=== PATIENT | female | born 1980 | race Caucasian/White ===

== ENCOUNTER 2020-12-26 18:52 | Inpatient (IN) ==
[2020-12-27] MEDS ORDERED: Naloxone 0.4 MG/ML INJ IVP PRN (01:04)
[2020-12-27] MEDS ORDERED: 0.9 % Sodium Chloride 1,000 ML IVC SCH (01:15)
[2020-12-27] MEDS: Ondansetron 4 MG/2 ML VIAL IVP PRN ×3 (01:40→20:06)
[2020-12-27 02:07] LABS: Lymphocytes % 5.3 %; Mean Platelet Volume 10.8 fL (9.4-12.4); Red Cell Distribution Width 12.6 % (11.5-14.5); Segmented Neutrophils % 86.6 %
[2020-12-27 02:08] LABS: Basophils # 0.1 K/mcL (0.0-0.2); Basophils % 0.2 %; Hematocrit 36.9 % (35.3-44.9); Hemoglobin 12.3 g/dL (11.5-15.4); Immature Granulocytes % 0.9 % (0-4); Lymphocytes # 1.6 K/mcL (0.6-4.6); Mean Corpuscular HGB Conc 33.3 g/dL (31.6-35.5); Mean Corpuscular Hemoglobin 31.5 pg (28.0-33.3); Mean Corpuscular Volume 94.4 fL (83.0-100.0); Monocytes # 2.1 K/mcL (0.0-1.3); Neutrophils # 25.4 K/mcL (1.6-8.9); Platelet Count 176 K/mcL (140-400); Red Blood Count 3.91 M/mcL (3.82-4.97); White Blood Count 29.3 K/mcL (4.3-11.1)
[2020-12-27 02:15] LABS: INR 1.4; Prothrombin Time 16.5 Seconds (9.4-12.1)
[2020-12-27 02:18] LABS: Activated Partial Thrombo Time 24.2 Seconds (26.0-36.0)
[2020-12-27 02:26] LABS: Alanine Aminotransferase 7 Units/L (7-52); Albumin 3.8 g/dL (3.5-5.7); Albumin/Globulin Ratio 1.3 (1.1-2.2); Alkaline Phosphatase 50 Units/L (34-104); Aspartate Amino Transferase 12 Units/L (13-39); BUN/Creatinine Ratio 12 (6-26); Bilirubin,Total 0.5 mg/dL (0.3-1.0); Blood Urea Nitrogen 9 mg/dL (6-20); Carbon Dioxide 20 mEq/L (23-29); Chloride 104 mEq/L (98-107); Glucose 114 mg/dL (70-105); Magnesium 1.3 mg/dL (1.6-2.6); Osmolality,Calculated 278 (280-300); Phosphorous 1.9 mg/dL (2.7-4.5); Potassium 3.3 mEq/L (3.5-5.1); Sodium 134 mEq/L (136-145); Total Protein 6.8 g/dL (6.4-8.9); eGFR For African Americans > 60 (> 60); eGFR For Non-African Americans > 60 (> 60)
[2020-12-27] MEDS: Acetaminophen 325 MG TABLET PO PRN ×3 (02:56→23:58)
[2020-12-27] MEDS ORDERED: Magnesium Sulfate 1 GM/102 ML PIGGYBACK IVPB ONE (05:26)
[2020-12-27] MEDS ORDERED: Potassium Phosphate 44 MEQ in 0.9 % Sodium Chloride 250 ML IVPB ONE (05:26)
[2020-12-27 07:33] LABS: Protein/Creatinine Ratio,Urine 0.3 mg/mg (0.00-0.20)
[2020-12-27 07:44] LABS: Bilirubin,Urine Negative (Negative); Blood,Urine Trace (Negative); Clarity,Urine Clear (Clear); Color,Urine Colorless (Yellow); Glucose,Urine (UA) Normal (Normal); Ketones,Urine Negative (Negative); Leukocyte Esterase,Urine Negative (Negative); Mucus,Urine Few per lpf (None-Few); Nitrite,Urine Negative (Negative); PH,Urine 6.5 pH Units (5.0-8.0); Protein,Urine Negative (Neg-Trace); Specific Gravity,Urine 1.005 (1.010-1.025); Squamous Epithelial Cell,Urine Few per hpf (None-Few); Urobilinogen,Urine Normal (Normal); WBC,Urine 0-3 per hpf (0-3)
[2020-12-27] MEDS: Piperacillin/Tazobactam 3.375 GM in 0.9 % Sodium Chloride Mini Bag 100 ML IVPB SCH ×3 (08:09→23:58)
[2020-12-27 08:26] LABS: Sodium, Urine 10.9 mEq/L
[2020-12-27] MEDS: ALPRAZolam 1 MG TABLET PO PRN ×2 (09:22→22:27)
[2020-12-27] MEDS ORDERED: 0.9 % Sodium Chloride 500 ML IV ONE ×2 (16:41→17:00)
[2020-12-27] MEDS: Perphenazine 2 MG TABLET PO SCH (20:06)
[2020-12-27] MEDS: Lithium Carbonate 300 MG CAPSULE PO SCH (20:06)
[2020-12-28] MEDS ORDERED: *HR* Promethazine 25 MG/ML VIAL IM ONE (00:44)
[2020-12-28 05:32] LABS: Vancomycin,Trough 5 mcg/mL (5-10)
[2020-12-28 05:33] LABS: BUN/Creatinine Ratio 7 (6-26); Blood Urea Nitrogen 5 mg/dL (6-20); Calcium 8.3 mg/dL (8.6-10.3); Carbon Dioxide 18 mEq/L (23-29); Chloride 111 mEq/L (98-107); Glucose 119 mg/dL (70-105); Osmolality,Calculated 284 (280-300); Potassium 4.3 mEq/L (3.5-5.1); Sodium 138 mEq/L (136-145); eGFR For African Americans > 60 (> 60); eGFR For Non-African Americans > 60 (> 60)
[2020-12-28 05:59] LABS: Basophils # 0.1 K/mcL (0.0-0.2); Basophils % 0.2 %; Eosinophils # 0.1 K/mcL (0.0-0.6); Eosinophils % 0.4 %; Hematocrit 35.3 % (35.3-44.9); Hemoglobin 11.8 g/dL (11.5-15.4); Immature Granulocytes % 0.6 % (0-4); Lymphocytes % 13.6 %; Mean Corpuscular HGB Conc 33.4 g/dL (31.6-35.5); Mean Corpuscular Hemoglobin 30.6 pg (28.0-33.3); Mean Platelet Volume 11.3 fL (9.4-12.4); Monocytes # 2.5 K/mcL (0.0-1.3); Monocytes % 11.3 %; Neutrophils # 16.1 K/mcL (1.6-8.9); Platelet Count 142 K/mcL (140-400); Red Blood Count 3.85 M/mcL (3.82-4.97); Red Cell Distribution Width 12.8 % (11.5-14.5); Segmented Neutrophils % 73.9 %; White Blood Count 21.8 K/mcL (4.3-11.1)
[2020-12-28 06:00] LABS: Mean Corpuscular Volume 91.7 fL (83.0-100.0)
[2020-12-28] MEDS ORDERED: Vancomycin 1,250 MG/262.5 ML IV.SOLN IVPB SCH (06:00)
[2020-12-28] MEDS: Perphenazine 2 MG TABLET PO SCH ×2 (09:16→20:47)
[2020-12-28] MEDS: ALPRAZolam 1 MG TABLET PO PRN ×2 (09:16→20:48)
[2020-12-28] MEDS: Ondansetron 4 MG/2 ML VIAL IVP PRN ×2 (09:17→20:47)
[2020-12-28] MEDS: Lithium Carbonate 300 MG CAPSULE PO SCH ×2 (09:17→20:48)
[2020-12-28] MEDS: Piperacillin/Tazobactam 3.375 GM in 0.9 % Sodium Chloride Mini Bag 100 ML IVPB SCH ×2 (09:17→16:12)
[2020-12-28] MEDS ORDERED: Acetaminophen IV 500 MG/50 ML BAG IVPB ONE (09:44)
[2020-12-28] MEDS ORDERED: Ringers Solution, Lactated 1,000 ML IVC SCH (14:00)
[2020-12-28] MEDS: Vancomycin 1,500 MG/265 ML IV.SOLN IVPB SCH (17:13)
[2020-12-28] MEDS: *HR* Heparin 5,000 UNIT/ML VIAL SQ SCH (17:14)
[2020-12-28] MEDS: Acetaminophen 325 MG TABLET PO PRN (19:00)
[2020-12-28] MEDS: Lactobacillus 1 EACH CAP.SPRINK PO SCH (22:31)
[2020-12-28] MEDS: Metoclopramide 10 MG/2 ML VIAL IVP PRN (22:31)
[2020-12-29] MEDS: Acetaminophen 325 MG TABLET PO PRN (00:44)
[2020-12-29] MEDS: Piperacillin/Tazobactam 3.375 GM in 0.9 % Sodium Chloride Mini Bag 100 ML IVPB SCH ×2 (00:48→09:24)
[2020-12-29] MEDS ORDERED: 0.9 % Sodium Chloride 500 ML IVC ONE (03:52)
[2020-12-29] MEDS: *HR* Heparin 5,000 UNIT/ML VIAL SQ SCH (05:05)
[2020-12-29] MEDS: Vancomycin 1,500 MG/265 ML IV.SOLN IVPB SCH (05:06)
[2020-12-29 05:37] LABS: Eosinophils % 1.3 %; Red Cell Distribution Width 12.8 % (11.5-14.5)
[2020-12-29 05:39] LABS: Basophils # 0.1 K/mcL (0.0-0.2); Basophils % 0.4 %; Eosinophils # 0.2 K/mcL (0.0-0.6); Immature Granulocytes % 0.9 % (0-4); Immature Platelets 14.3 % (1.1-6.1); Lymphocytes # 2.4 K/mcL (0.6-4.6); Lymphocytes % 20.7 %; Mean Corpuscular HGB Conc 32.4 g/dL (31.6-35.5); Mean Corpuscular Hemoglobin 30.1 pg (28.0-33.3); Mean Corpuscular Volume 92.9 fL (83.0-100.0); Mean Platelet Volume 12.5 fL (9.4-12.4); Monocytes # 1.1 K/mcL (0.0-1.3); Monocytes % 9.1 %; Platelet Count 106 K/mcL (140-400); Red Blood Count 3.66 M/mcL (3.82-4.97); Segmented Neutrophils % 67.6 %; White Blood Count 11.6 K/mcL (4.3-11.1)
[2020-12-29 05:44] LABS: BUN/Creatinine Ratio 4 (6-26); Blood Urea Nitrogen 3 mg/dL (6-20); Calcium 8.2 mg/dL (8.6-10.3); Carbon Dioxide 21 mEq/L (23-29); Chloride 113 mEq/L (98-107); Glucose 129 mg/dL (70-105); Magnesium 1.9 mg/dL (1.6-2.6); Osmolality,Calculated 288 (280-300); Phosphorous 2.1 mg/dL (2.7-4.5); Potassium 4.4 mEq/L (3.5-5.1); Sodium 140 mEq/L (136-145); eGFR For African Americans > 60 (> 60); eGFR For Non-African Americans > 60 (> 60)
[2020-12-29 06:10] LABS: Neutrophils # 7.8 K/mcL (1.6-8.9)
[2020-12-29 06:11] LABS: Platelet Estimate Slight Decrease (Normal)
[2020-12-29 07:27] LABS: Adenovirus F 40/41 PCR Not detected (Not detect); Astrovirus PCR Not detected (Not detect); C.difficile Toxin A/B Gene PCR Not detected (Not detect); Campylobacter by PCR Not detected (Not detect); Cryptosporidium by PCR Not detected (Not detect); Cyclospora cayetanensis PCR Not detected (Not detect); E. coli O157 by PCR Not detected (Not detect); Entamoeba histolytica PCR Not detected (Not detect); Enteroaggregative E.coli(EAEC) Not detected (Not detect); Enteropathogenic E.coli(EPEC) Not detected (Not detect); Enterotoxigenic E.coli (ETEC) Not detected (Not detect); Giardia lamblia PCR Not detected (Not detect); Norovirus GI/GII PCR Not detected (Not detect); Plesiomonas shigelloides PCR Not detected (Not detect); Rotavirus A PCR Not detected (Not detect); Salmonella PCR Not detected (Not detect); Sapovirus PCR Not detected (Not detect); Shig/EnteroinvasiveE coli EIEC Not detected (Not detect); Shigalike tox-prod E coli STEC Not detected (Not detect); Vibrio PCR Not detected (Not detect); Vibrio cholerae PCR Not detected (Not detect); Yersinia enterocolitica PCR Not detected (Not detect)
[2020-12-29] MEDS: ALPRAZolam 1 MG TABLET PO PRN ×2 (09:26→13:55)
[2020-12-29] MEDS: Lithium Carbonate 300 MG CAPSULE PO SCH (09:26)
[2020-12-29] MEDS: Metoclopramide 10 MG/2 ML VIAL IVP PRN (09:26)
[2020-12-29] MEDS: Perphenazine 2 MG TABLET PO SCH (09:28)
[2020-12-29] MEDS: Lactobacillus 1 EACH CAP.SPRINK PO SCH (09:28)
[2020-12-29] MEDS ORDERED: Ringers Solution, Lactated 500 ML IVC SCH (13:15)
[2020-12-29] MEDS: Ondansetron 4 MG/2 ML VIAL IVP PRN (13:56)
[2020-12-29 15:46] VITALS: BP 101/60
== END 2020-12-29 18:29 | disposition home or self-care (01) | DRG 720 ==
LOC: 3ANU → SUATTDRO 12-27 00:22
PROVIDERS: ADMIT Internal Medicine; ATTEND Internal Medicine

== ENCOUNTER 2021-01-03 13:16 | Inpatient (IN) ==
[2021-01-03 14:22] LABS: Basophils % 0.3 %; Eosinophils # 0.1 K/mcL (0.0-0.6); Eosinophils % 0.9 %; Hematocrit 42.2 % (35.3-44.9); Immature Granulocytes % 0.7 % (0-4); Lymphocytes # 4.1 K/mcL (0.6-4.6); Lymphocytes % 27.4 %; Mean Corpuscular HGB Conc 32.5 g/dL (31.6-35.5); Mean Corpuscular Hemoglobin 30.6 pg (28.0-33.3); Mean Corpuscular Volume 94.2 fL (83.0-100.0); Monocytes # 0.5 K/mcL (0.0-1.3); Monocytes % 3.1 %; Neutrophils # 10.2 K/mcL (1.6-8.9); Platelet Count 413 K/mcL (140-400); Red Blood Count 4.48 M/mcL (3.82-4.97); Segmented Neutrophils % 67.6 %
[2021-01-03 14:28] LABS: Amorphous Sediment,Urine Few per hpf (None-Few); Bacteria,Urine Few per hpf (None-Few); Bilirubin,Urine Negative (Negative); Blood,Urine Negative (Negative); Clarity,Urine Ex.Turbid (Clear); Color,Urine Yellow (Yellow); Glucose,Urine (UA) Normal (Normal); Ketones,Urine Negative (Negative); Leukocyte Esterase,Urine Trace (Negative); Mucus,Urine Few per lpf (None-Few); Nitrite,Urine Negative (Negative); PH,Urine 7.5 pH Units (5.0-8.0); Protein,Urine Trace mg/dL (Neg-Trace); RBC,Urine 0-3 per hpf (0-3); Specific Gravity,Urine 1.017 (1.010-1.025); Squamous Epithelial Cell,Urine Few per hpf (None-Few)
[2021-01-03 14:30] LABS: Hemoglobin 13.7 g/dL (11.5-15.4)
[2021-01-03 14:45] LABS: Alanine Aminotransferase 15 Units/L (7-52); Albumin 4.4 g/dL (3.5-5.7); Albumin/Globulin Ratio 1.3 (1.1-2.2); Alkaline Phosphatase 60 Units/L (34-104); Amylase 57 Units/L (29-103); Aspartate Amino Transferase 14 Units/L (13-39); BUN/Creatinine Ratio 9 (6-26); Bilirubin,Direct 0.1 mg/dL (0.0-0.2); Bilirubin,Indirect 0.2 mg/dL (0.0-1.0); Bilirubin,Total 0.3 mg/dL (0.3-1.0); Blood Urea Nitrogen 6 mg/dL (6-20); Calcium 9.8 mg/dL (8.6-10.3); Carbon Dioxide 29 mEq/L (23-29); Chloride 106 mEq/L (98-107); Globulin 3.5 g/dL (2.4-3.5); Glucose 99 mg/dL (70-105); Lipase 30 Units/L (11-82); Osmolality,Calculated 292 (280-300); Potassium 3.2 mEq/L (3.5-5.1); Sodium 142 mEq/L (136-145); Total Protein 7.9 g/dL (6.4-8.9); eGFR For African Americans > 60 (> 60); eGFR For Non-African Americans > 60 (> 60)
[2021-01-03] MEDS ORDERED: Isovue-370 500 ML BOTTLE IVP ONE (15:02)
[2021-01-03] MEDS ORDERED: *HR* FentaNYL (PF) 100 MCG/2 ML VIAL IVP ONE (15:08)
[2021-01-03] MEDS ORDERED: Ondansetron 4 MG/2 ML VIAL IVP ONE (15:08)
[2021-01-03] MEDS ORDERED: 0.9 % Sodium Chloride 1,000 ML IV ONE (17:46)
[2021-01-03] MEDS ORDERED: Piperacillin/Tazobactam 3.375 GM in 0.9 % Sodium Chloride Mini Bag 100 ML IVPB ONE (17:46)
[2021-01-03] MEDS ORDERED: *HR* HYDROmorphone (PF) 1 MG/ML SYRINGE IVP ONE (18:23)
[2021-01-03] MEDS ORDERED: Ondansetron 4 MG/2 ML VIAL IVP PRN (19:30)
[2021-01-03] MEDS ORDERED: Acetaminophen 325 MG TABLET PO PRN (19:30)
[2021-01-03] MEDS ORDERED: Naloxone 0.4 MG/ML INJ IVP PRN (19:30)
[2021-01-03] MEDS ORDERED: 0.9 % Sodium Chloride 1,000 ML IVC SCH (19:30)
[2021-01-03] MEDS ORDERED: Potassium Chloride Elixir 20 MEQ/15 ML UDC PO ONE (21:31)
[2021-01-03] MEDS: Lithium Carbonate 300 MG CAPSULE PO SCH (21:37)
[2021-01-03] MEDS: clonazePAM 1 MG TABLET PO PRN (21:37)
[2021-01-03] MEDS: Ketorolac 15 MG/ML VIAL IVP PRN (21:38)
[2021-01-03] MEDS: *HR* Promethazine 25 MG/ML VIAL IM PRN (21:38)
[2021-01-03 23:58] LABS: Adenovirus F 40/41 PCR Not detected (Not detect); Astrovirus PCR Not detected (Not detect); C.difficile Toxin A/B Gene PCR Not detected (Not detect); Campylobacter by PCR Not detected (Not detect); Cryptosporidium by PCR Not detected (Not detect); Cyclospora cayetanensis PCR Not detected (Not detect); E. coli O157 by PCR Not detected (Not detect); Entamoeba histolytica PCR Not detected (Not detect); Enteroaggregative E.coli(EAEC) Not detected (Not detect); Enteropathogenic E.coli(EPEC) Not detected (Not detect); Enterotoxigenic E.coli (ETEC) Not detected (Not detect); Giardia lamblia PCR Not detected (Not detect); Norovirus GI/GII PCR Not detected (Not detect); Plesiomonas shigelloides PCR Not detected (Not detect); Rotavirus A PCR Not detected (Not detect); Salmonella PCR Not detected (Not detect); Sapovirus PCR Not detected (Not detect); Shig/EnteroinvasiveE coli EIEC Not detected (Not detect); Shigalike tox-prod E coli STEC Not detected (Not detect); Vibrio PCR Not detected (Not detect); Vibrio cholerae PCR Not detected (Not detect); Yersinia enterocolitica PCR Not detected (Not detect)
[2021-01-04] MEDS: Piperacillin/Tazobactam 3.375 GM in 0.9 % Sodium Chloride Mini Bag 100 ML IVPB SCH ×3 (01:25→18:25)
[2021-01-04] MEDS: Ketorolac 15 MG/ML VIAL IVP PRN (03:27)
[2021-01-04 07:26] LABS: BUN/Creatinine Ratio 7 (6-26); Blood Urea Nitrogen 5 mg/dL (6-20); Calcium 8.5 mg/dL (8.6-10.3); Carbon Dioxide 17 mEq/L (23-29); Chloride 113 mEq/L (98-107); Glucose 132 mg/dL (70-105); Osmolality,Calculated 287 (280-300); Potassium 4.3 mEq/L (3.5-5.1); Sodium 139 mEq/L (136-145); eGFR For African Americans > 60 (> 60); eGFR For Non-African Americans > 60 (> 60)
[2021-01-04 08:28] LABS: Hematocrit 38.1 % (35.3-44.9); Hemoglobin 12.1 g/dL (11.5-15.4); Mean Corpuscular HGB Conc 31.8 g/dL (31.6-35.5); Mean Corpuscular Volume 94.5 fL (83.0-100.0); Mean Platelet Volume 10.3 fL (9.4-12.4); Platelet Count 364 K/mcL (140-400); Red Blood Count 4.03 M/mcL (3.82-4.97); Red Cell Distribution Width 13.3 % (11.5-14.5); White Blood Count 11.3 K/mcL (4.3-11.1)
[2021-01-04] MEDS: clonazePAM 1 MG TABLET PO PRN ×2 (09:29→15:43)
[2021-01-04] MEDS: Lithium Carbonate 300 MG CAPSULE PO SCH ×2 (09:29→21:21)
[2021-01-04] MEDS: *HR* Promethazine 25 MG/ML VIAL IM PRN ×2 (11:55→18:26)
[2021-01-04] MEDS: *HR* Heparin 5,000 UNIT/ML VIAL SQ SCH (18:20)
[2021-01-05] MEDS: clonazePAM 1 MG TABLET PO PRN ×2 (01:02→08:32)
[2021-01-05] MEDS: Piperacillin/Tazobactam 3.375 GM in 0.9 % Sodium Chloride Mini Bag 100 ML IVPB SCH (02:24)
[2021-01-05] MEDS ORDERED: Bismuth Subsalicylate 120 ML ORAL SUSPENSION PO PRN (02:50)
[2021-01-05] MEDS: *HR* Heparin 5,000 UNIT/ML VIAL SQ SCH (05:19)
[2021-01-05 05:23] LABS: Basophils # 0.1 K/mcL (0.0-0.2); Basophils % 0.6 %; Eosinophils # 0.4 K/mcL (0.0-0.6); Eosinophils % 2.8 %; Hematocrit 38.7 % (35.3-44.9); Hemoglobin 12.4 g/dL (11.5-15.4); Immature Granulocytes % 0.5 % (0-4); Lymphocytes # 4.7 K/mcL (0.6-4.6); Lymphocytes % 36.3 %; Mean Corpuscular Hemoglobin 30.2 pg (28.0-33.3); Mean Corpuscular Volume 94.4 fL (83.0-100.0); Mean Platelet Volume 10.4 fL (9.4-12.4); Neutrophils # 7.1 K/mcL (1.6-8.9); Platelet Count 355 K/mcL (140-400); Red Cell Distribution Width 13.3 % (11.5-14.5); Segmented Neutrophils % 54.8 %; White Blood Count 12.9 K/mcL (4.3-11.1)
[2021-01-05 05:24] LABS: Monocytes # 0.7 K/mcL (0.0-1.3)
[2021-01-05 05:40] LABS: Platelet Estimate Normal (Normal)
[2021-01-05 05:41] LABS: Reactive Lymphocytes Present (Not Present)
[2021-01-05 07:50] LABS: BUN/Creatinine Ratio 9 (6-26); Blood Urea Nitrogen 9 mg/dL (6-20); Calcium 9.2 mg/dL (8.6-10.3); Carbon Dioxide 28 mEq/L (23-29); Chloride 107 mEq/L (98-107); Glucose 80 mg/dL (70-105); Osmolality,Calculated 288 (280-300); Sodium 140 mEq/L (136-145); eGFR For African Americans > 60 (> 60); eGFR For Non-African Americans > 60 (> 60)
[2021-01-05 08:28] VITALS: BP 123/61
[2021-01-05] MEDS: Lithium Carbonate 300 MG CAPSULE PO SCH (08:32)
== END 2021-01-05 09:51 | disposition home or self-care (01) | DRG 720 ==
LOC: EMEROOARM 13:16 → 3ANU 13:16 → SUATTDRO 19:04 → 3ANU 20:04
PROVIDERS: ADMIT Internal Medicine; ATTEND Family Medicine